=== PATIENT | female | born 1965 | race Caucasian/White ===

== ENCOUNTER 2017-07-09 07:54 | Emergency (ER) | payer OTHER ==
[~2017-07-09 07:54] MED LIST: ADVI200T17 PO; ATOR20TA15 PO; IBUP200C17; IBUP800T23 PO; LOSA50TA PO; MOBI15TA PO; VITA2000 PO
[2017-07-09 07:56] VITALS: BP 170/102; PULSE 95; RESP 14; TEMP 97.9; O2SAT 95
--- NOTE | 2017-07-09 08:17 | PD ---
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 Patient states she was at a call, when she tripped over something on the floor, causing a twisting injury to the left ankle. Patient now has pain in the left lateral ankle. She is able to walk but with a limp. She states it was worse at first but now seems to have improved somewhat. This is a workplace injury. Patient denies tingling or weakness. Pain is currently a 6 out of 10. It is worse with ambulation. Patient is allergic to penicillin and tramadol. PFSH Past Medical History Arthritis: Yes Autoimmune Disease: No Cancer: No Cardiovascular Problems: No High Cholesterol: No Endocrine: No Gastrointestinal Disorders: Yes (GERD) GERD: Yes Genitourinary: No Hiatal Hernia: Yes Immune Disorder: No Musculoskeletal: Yes Neurologic: No Psychiatric: No Reproductive: No Respiratory: Yes Sleep Apnea: Yes Past Surgical History Cholecystectomy: Yes Eye Surgery: Yes (BILAT RK SX) Pacemaker: Yes Other Surgery: Yes (hernia) Social History Alcohol Use: No Tobacco Use: No Substance Use: No Allergies-Medications (Allergen,Severity, Reaction): Coded Allergies: tramadol (Unverified Allergy, Severe, TACHYCARDIA, ANXIETY, 07/09/17) penicillin G (Unverified Allergy, Unknown, Rash, 07/09/17) Reported Meds & Prescriptions Reported Meds & Active Scripts Active Mapap Extra Strength (Acetaminophen) 500 Mg Tab 1,000 Mg PO Q6HR PRN Mobic (Meloxicam) 15 Mg Tab 15 Mg PO DAILY Reported Atorvastatin (Atorvastatin Calcium) 20 Mg Tab 20 Mg PO HS Losartan (Losartan Potassium) 50 Mg Tab 50 Mg PO DAILY Review of Systems Except as stated in HPI: all other systems reviewed are Neg General / Constitutional: No: Fever Eyes: No: Visual changes HENT: No: Headaches Cardiovascular: No: Chest Pain or Discomfort Respiratory: No: Shortness of Breath Gastrointestinal: No: Abdominal Pain Genitourinary: No: Dysuria Musculoskeletal: Positive: Arthralgias, Limited ROM, Pain Skin: No Rash Neurologic: No: Weakness Psychiatric: No: Depression Endocrine: No: Polydipsia Hematologic/Lymphatic: No: Easy Bruising Physical Exam Narrative GENERAL: Patient appears in mild distress. SKIN: Warm and dry. Normal color. Normal turgor. No ecchymosis. HEAD: Atraumatic. Normocephalic. EYES: Pupils equal and round. No scleral icterus. No injection or drainage. ENT: No nasal bleeding or discharge. Mucous membranes pink and moist. Pharynx clear. Airway is patent. NECK: Trachea midline. Supple. CARDIOVASCULAR: Regular rate and rhythm. RESPIRATORY: No accessory muscle use. Clear to auscultation. Breath sounds equal bilaterally. MUSCULOSKELETAL: Extremities without clubbing, cyanosis, or edema. No obvious deformities. Patient does have moderate swelling over the anterior lateral left ankle with tenderness. Range of motion is somewhat limited secondary to pain. Patient also complaining of some mild pain in the medial malleolus or region as well. NEUROLOGICAL: Awake and alert. No obvious cranial nerve deficits. Motor grossly within normal limits. Five out of 5 muscle strength in the arms and legs. Normal speech. PSYCHIATRIC: Appropriate mood and affect; insight and judgment normal. Data Data Last Documented VS Vital Signs Date Time Temp Pulse Resp B/P (MAP) Pulse Ox O2 Delivery O2 Flow Rate FiO2 07/09/17 07:56 97.9 95 14 170/102 (124) 95 Orders Orders Ankle, Complete ([id number]) (07/09/17 08:00) Ice/Cold Pack (07/09/17 08:00) Splinting (07/09/17 ) Crutches (07/09/17 ) MDM Medical Decision Making Medical Screen Exam Complete: Yes Emergency Medical Condition: Yes Differential Diagnosis Workplace injury. Left lateral ankle sprain. Possible fracture. Narrative Course Ice is placed over the injured area. X-rays of the left ankle are obtained. X-ray shows possible avulsion fracture to the left lateral malleolus. Patient is placed in a Odell splint and crutches. Patient is given meloxicam and acetaminophen as needed for pain. Worker's Comp. forms were completed. Patient should remain nonweightbearing on the left foot until cleared by either orthopedic or german tutor from Worker's Comp. Diagnosis Primary Impression: Closed fracture of lateral malleolus of left ankle Qualified Codes: S82.65XA - Nondisplaced fracture of lateral malleolus of left fibula, initial encounter for closed fracture Referrals: Orthopedist Clock Assembler Patient Instructions: Crutch Instructions (ED), General Instructions, Splint Care (ED) Additional Instructions: X-ray shows possible avulsion fracture to the left lateral malleolus. Patient is placed in a Odell splint and crutches. Patient is given meloxicam and acetaminophen as needed for pain. Worker's Comp. forms were completed. Patient should remain nonweightbearing on the left foot until cleared by either orthopedic or german tutor from Worker's Comp. Med/Other Pt SpecificInfo: Prescription(s) given Scripts Acetaminophen (Mapap Extra Strength) 500 Mg Tab 1000 MG PO Q6HR Y for PAIN, #60 TAB 0 Refills Prov: Jim Dboson MD 07/09/17 Meloxicam (Mobic) 15 Mg Tab 15 MG PO DAILY for Pain, #60 TAB 3 Refills Prov: Jim Dobson MD 07/09/17 Disposition: 01 DISCHARGE HOME Condition: Stable Jaylen Alfonso Jul 09, 2017 08:06
--- NOTE | 2017-07-09 08:21 | RADRPT ---
EXAM DATE/TIME: 07/09/2017 08:12 [facility] COMPARISON: No previous studies available for comparison. INDICATIONS : Left lateral ankle pain, twisted MEDICAL HISTORY : None. SURGICAL HISTORY : None. ENCOUNTER: Initial ACUITY: 1 day PAIN SCORE: 4/10 LOCATION: Left Ankle FINDINGS: There is diffuse soft tissue swelling around the ankle. There are some small bone fragment seen just inferior to the lateral malleolus suggesting subtle avulsion. The osseous structures are otherwise in tact. The alignment of the ankle mortise is anatomic. CONCLUSION: 1. Diffuse soft tissue swelling with small bone fragments along the lateral malleolus suggesting avul ivania. Wyatt Mendez MD on July 09, 2017 at 8:19 Board Certified Radiologist. This report was verified electronically.
[2017-07-09] MEDS ORDERED: MAPA500T13 PO (08:42)
[2017-07-09] MEDS ORDERED: MOBI15TA PO (08:42)
== END 2017-07-09 11:19 | disposition home or self-care (01) ==
LOC: NEPK 07:54
DX: S82.65XA Nondisplaced fracture of lateral malleolus of left fibula, initial encounter for closed fracture (principal); X50.1XXA Overexertion from prolonged static or awkward postures, initial encounter; Y93.01 Activity, walking, marching and hiking; Y99.0 Civilian activity done for income or pay
CPT/HCPCS: 29515; 73610; 99283; E0113